=== PATIENT | male | born 1960 | race American Indian/Alaskan Native ===

== ENCOUNTER 2021-07-18 14:29 | Inpatient (IN) | payer OTHER ==
[2021-07-18] MEDS ORDERED: SODIUM CHLORIDE 0.9% 500 ML 500 ML IV ONE (14:31)
[2021-07-18] MEDS ORDERED: HEPARIN 1,000 UNIT/1 ML VIAL IV ONE (14:31)
[2021-07-18] MEDS ORDERED: ONDANSETRON 4 MG/2 ML INJ IV ONE (14:31)
[2021-07-18] MEDS ORDERED: CLOPIDOGREL 300 MG TAB PO ONE (14:31)
[2021-07-18] MEDS ORDERED: MORPHINE 4 MG/1 ML INJ IV ONE (14:32)
[2021-07-18] MEDS ORDERED: HEPARIN 10,000 UNITS/10 ML VIAL ONE (14:34)
[2021-07-18] MEDS ORDERED: HEPARIN/NS 5000 UNIT/500ML 1,000 ML IR ONE (14:34)
[2021-07-18] MEDS ORDERED: VERAPAMIL 5 MG/2 ML INJ ONE (14:34)
[2021-07-18] MEDS ORDERED: LIDOCAINE (2%) 20 MG/1 ML VIAL 50 ML MDV INFILTRATI ONE (14:34)
[2021-07-18] MEDS ORDERED: NITROGLYCERIN SYRINGE 3 ML ONE (14:34)
[2021-07-18] MEDS ORDERED: SODIUM CHLORIDE 0.9% 1000 ML 1,000 ML ONE (14:35)
--- NOTE | 2021-07-18 14:39 | Emergency Department Report ---
ED Chest Pain HPI - General Chief Complaint: Chest Pain Stated Complaint: STEM Time Seen by Provider: 07/18/21 14:29 Source: patient, police, EMS (Verbal report received from emergency medical services. EMS documentation not available at time of chart dictation ), RN notes reviewed Mode of arrival: Stretcher Limitations: No Limitations - History of Present Illness Initial Comments: The patient is a 60-year-old gentleman who is currently incarcerated, with a history of diabetes, presenting to the ER with central chest pain. Prehospital EKG indicates inferior wall STEMI. There may also be a lateral component. Prehospital EKG is used to initiate code STEMI. Patient's pain is relieved with morphine and nitroglycerin, both administered by EMS in the field. Specific EMS administration of nitroglycerin was not discussed with myself prehospital. Patient also received aspirin. Patient denies travel, surgery, immobilization, DVT/PE risk factors. His pain is much improved after the aforementioned interventions. Hospital physician, Dr. Babin, to admit patient to the medical service. Interventional cardiology, Arjun Arias, to emergently take patient to the cardiac catheterization lab. Critical care physician, Dr. Walker to coordinate ICU admission MD Complaint: chest pain -: Sudden Onset: during rest Pain Location: substernal Consistency: constant Improves With: nitroglycerin, medication-other Worsens With: nothing Aspirin use within the Past 7 Days: (1) Yes - Related Data Home Medications Medication Instructions Recorded Confirmed Last Taken metFORMIN [Glucophage] 500 mg PO QDAY 07/18/21 07/18/21 Unknown Allergies Allergy/AdvReac Type Severity Reaction Status Date / Time insulin isophane (NPH) Allergy Angioedema Verified 07/18/21 14:55 Heart Score - HEART Score History: Moderately suspicious EKG: Significant ST-depression Age: 45-65 Risk factors: > 3 risk factors or hx of atherosclerotic disease Troponin: < normal limit HEART Score: 6 - EKG Read Time Time EKG Completed: 14:20 EKG Read Time: 14:20 - Critical Actions Critical Actions: 4-6 pts:12-16.6% risk of adverse cardiac event. Should be admitted ED Review of Systems ROS: Stated complaint: STEM Other details as noted in HPI Constitutional: denies: fever Eyes: denies: eye discharge ENT: denies: hearing loss Respiratory: denies: cough Cardiovascular: chest pain Gastrointestinal: denies: abdominal pain, hematemesis, melena, hematochezia Musculoskeletal: denies: back pain Neurological: denies: weakness ED Past Medical Hx - Medications Home Medications: Home Medications Medication Instructions Recorded Confirmed Last Taken Type metFORMIN [Glucophage] 500 mg PO QDAY 07/18/21 07/18/21 Unknown History ED Physical Exam - General Limitations: No Limitations General appearance: alert, in no apparent distress - Head Head exam: Present: atraumatic, normocephalic - Eye Eye exam: Present: normal appearance, EOMI. Absent: nystagmus - ENT ENT exam: Present: normal exam, normal orophraynx, mucous membranes moist, normal external ear exam - Neck Neck exam: Present: normal inspection, full ROM. Absent: tenderness, meningismus - Respiratory Respiratory exam: Present: normal lung sounds bilaterally. Absent: respiratory distress, wheezes, rales, rhonchi, stridor, decreased breath sounds - Cardiovascular Cardiovascular Exam: Present: regular rate, normal rhythm, normal heart sounds. Absent: bradycardia, tachycardia, irregular rhythm, systolic murmur, diastolic murmur, rubs, gallop - GI/Abdominal GI/Abdominal exam: Present: soft. Absent: distended, tenderness, guarding, rebound, rigid, pulsatile mass - Rectal Rectal exam: Present: deferred - Extremities Exam Extremities exam: Present: normal inspection, full ROM, other (2+ pulses noted in the bilateral upper and lower extremities. There is no palpable cord. negative Homans sign. Muscular compartments are soft. The pelvis is stable.). Absent: pedal edema, calf tenderness - Back Exam Back exam: Present: normal inspection. Absent: tenderness, CVA tenderness (R), CVA tenderness (L), paraspinal tenderness, vertebral tenderness - Neurological Exam Neurological exam: Present: alert, other (No facial droop. Tongue midline. Extraocular movements intact bilaterally. Facial sensation intact to light touch in V1, V2, V3 distribution bilaterally. 5 and a 5 strength in 4 extremities. Sensation intact to light touch in 4 extremities.). Absent: motor sensory deficit - Psychiatric Psychiatric exam: Present: anxious - Skin Skin exam: Present: warm, dry, intact, normal color. Absent: rash ED Course Vital Signs 07/18/21 07/18/21 07/18/21 14:34 15:30 15:45 Temperature 98.4 F Pulse Rate 115 H 103 H 102 H Respiratory 15 17 Rate Blood Pressure 103/72 104/72 O2 Sat by Pulse 96 95 Oximetry 07/18/21 07/18/21 07/18/21 16:00 16:15 16:30 Temperature Pulse Rate 103 H 103 H 104 H Respiratory 19 20 21 Rate Blood Pressure 110/74 103/74 110/75 O2 Sat by Pulse 97 95 95 Oximetry 07/18/21 07/18/21 07/18/21 17:00 17:45 18:00 Temperature Pulse Rate 105 H 105 H 102 H Respiratory 20 23 21 Rate Blood Pressure 102/69 110/68 113/74 O2 Sat by Pulse 96 98 97 Oximetry 07/18/21 07/18/21 07/18/21 19:00 20:00 21:24 Temperature 99.4 F Pulse Rate 103 H 105 H 106 H Respiratory 21 21 16 Rate Blood Pressure 120/78 103/78 116/77 O2 Sat by Pulse 96 96 93 Oximetry 07/19/21 07/19/21 07/19/21 02:36 03:42 08:20 Temperature 100.5 F H 98.6 F Pulse Rate 111 H 111 H Respiratory 16 18 Rate Blood Pressure 120/76 117/75 O2 Sat by Pulse 95 91 92 Oximetry - Reevaluation(s) Reevaluation #1: 07/18/21 14:38 Differential diagnosis, include but not limited to: Pericarditis, myocarditis, Prinzmetal's angina, acute coronary syndrome Assessment and plan: 60-year-old gentleman with acute chest pain and EKG meeting criteria for STEMI. Cardiac catheterization lab is activated. Hospital physician to admit, critical care and cardiology to follow in consultation. Cardiology nurse practitioner, Jeremiah Gordon, working with security lead, Dr Arjun Arias, advises administration of heparin, and Plavix. Due to the time sensitive nature of STEMI alert, the ER will not be able to follow-up on the patient's laboratory studies or x-rays. Defer to inpatient team to follow-up on initial ordered for diagnostics. Dr Alana Babin to admit consulted critical care Dr Walker for post cath admission to the ICU, who will follow in consultation 07/19/21 12:29 SALVATORE score - Salvatore Score Age > 65: (0) No Aspirin use within the Past 7 Days: (1) Yes 3 or more CAD Risk Factors: (1) Yes 2 or more Angina events in past 24 hrs: (0) No Known CAD with more than 50% Stenosis: (0) No Elevated Cardiac Markers: (0) No ST Deviation Greater than 0.5mm: (1) Yes SALVATORE Score: 3 ED Medical Decision Making - Lab Data Result diagrams: 07/18/21 14:33 07/18/21 14:33 Vital Signs 07/18/21 07/18/21 07/18/21 14:34 15:30 15:45 Temperature 98.4 F Pulse Rate 115 H 103 H 102 H Respiratory 15 17 Rate Blood Pressure 103/72 104/72 O2 Sat by Pulse 96 95 Oximetry 07/18/21 07/18/21 07/18/21 16:00 16:15 16:30 Temperature Pulse Rate 103 H 103 H 104 H Respiratory 19 20 21 Rate Blood Pressure 110/74 103/74 110/75 O2 Sat by Pulse 97 95 95 Oximetry 07/18/21 07/18/21 07/18/21 17:00 17:45 18:00 Temperature Pulse Rate 105 H 105 H 102 H Respiratory 20 23 21 Rate Blood Pressure 102/69 110/68 113/74 O2 Sat by Pulse 96 98 97 Oximetry 07/18/21 07/18/21 07/18/21 19:00 20:00 21:24 Temperature 99.4 F Pulse Rate 103 H 105 H 106 H Respiratory 21 21 16 Rate Blood Pressure 120/78 103/78 116/77 O2 Sat by Pulse 96 96 93 Oximetry 07/19/21 07/19/21 07/19/21 02:36 03:42 08:20 Temperature 100.5 F H 98.6 F Pulse Rate 111 H 111 H Respiratory 16 18 Rate Blood Pressure 120/76 117/75 O2 Sat by Pulse 95 91 92 Oximetry Lab Results 07/18/21 07/18/21 07/18/21 Range/Units 14:33 14:33 14:33 WBC 17.4 H (4.5-11.0) K/mm3 RBC 3.48 L (3.65-5.03) M/mm3 Hgb 9.6 L (11.8-15.2) gm/dl Hct 29.4 L (35.5-45.6) % MCV 85 (84-94) fl MCH 28 (28-32) pg MCHC 33 (32-34) % RDW 13.1 L (13.2-15.2) % Plt Count 512 H (140-440) K/mm3 Lymph % (Auto) 7.3 L (13.4-35.0) % Leake % (Auto) 9.2 H (0.0-7.3) % Eos % (Auto) 0.0 (0.0-4.3) % Baso % (Auto) 0.3 (0.0-1.8) % Lymph # (Auto) 1.3 (1.2-5.4) K/mm3 Leake # (Auto) 1.6 H (0.0-0.8) K/mm3 Eos # (Auto) 0.0 (0.0-0.4) K/mm3 Baso # (Auto) 0.1 (0.0-0.1) K/mm3 Seg Neutrophils % 83.2 H (40.0-70.0) % Seg Neutrophils # 14.5 H (1.8-7.7) K/mm3 PT 18.9 H (12.2-14.9) Sec. INR 1.41 H (0.87-1.13) APTT 31.6 (24.2-36.6) Sec. Sodium 125 L (137-145) mmol/L Potassium 4.0 (3.6-5.0) mmol/L Chloride 82.6 L (98-107) mmol/L Carbon Dioxide 26 (22-30) mmol/L Anion Gap 20 mmol/L BUN 16 (9-20) mg/dL Creatinine 0.9 (0.8-1.3) mg/dL Estimated GFR > 60 ml/min BUN/Creatinine Ratio 18 % Glucose 296 H (75-100) mg/dL Calcium 9.3 (8.4-10.2) mg/dL Total Creatine Kinase 59 (55-170) units/L CK-MB (CK-2) 1.0 (0.0-4.0) ng/mL CK-MB (CK-2) Rel Index 1.6 (0-4) Troponin T < 0.010 (0.00-0.029) ng/mL - EKG Data -: EKG Interpreted by Me - EKG Data 07/18/21 14:38 The prehospital EKG is interpreted by myself at 02: 2 0 p.m. Sinus rhythm, tachycardia, rate 112 bpm. Borderline leftward axis deviation, ST elevation in 2, 3, aVF, V5 and V6, abnormal EKG, consistent with a STEMI. - Radiology Data Radiology results: report reviewed, image reviewed [facility] [address] [place] [address] XRay Report Signed Patient: ANURAG HILTON MR#: [id number] : 1960 Acct:[id number] Age/Sex: 60 / M ADM Date: 07/18/21 Loc: 4A HEER2M-[address]: KEELY BABIN MD Ordering Physician: JEREMIAH BRANDON MD Date of Service: 07/18/21 Procedure(s): XR chest 1V ap Accession Number(s): [id number] cc: JEREMIAH BRANDON MD Fluoro Time In Minutes: Chest single view INDICATION: Dyspnea IMPRESSION: Cardiomegaly with trace bibasilar opacity probably representing atelectasis. No pneumothorax. Signer Name: Benny Dempsey MD Signed: 07/18/2021 6:55 PM Workstation Name: [id number] Transcribed By: BC Dictated By: Benny Dempsey MD Electronically Authenticated By: Benny Dempsey MD Signed Date/Time: 07/18/211854 DD/ 54 Critical Care Time: Yes Critical care time in (mins) excluding proc time.: 35 Critical care attestation.: If time is entered above; I have spent that time in minutes in the direct care of this critically ill patient, excluding procedure time. ED Disposition Clinical Impression: Acute chest pain, Abnormal EKG Disposition: ADMITTED INPATIENT Is pt being admited?: Yes Does the pt Need Aspirin: No Condition: Critical
[2021-07-18] MEDS ORDERED: fentaNYL 100 MCG/2 ML INJ ONE (14:43)
[2021-07-18] MEDS ORDERED: MIDAZOLAM 2 MG/2 ML INJ ONE (14:43)
--- NOTE | 2021-07-18 14:49 | History and Physical Report ---
History of Present Illness Chief complaint: My chest hurts History of present illness: 60 YO Male with DM, Cocaine Dependence presents ED for evaluation. Patient reports "my chest hurts". Patient states that he experienced chest pain over the past 2 weeks with an acute worsening of symptoms that occurred today. Dipti villafana states that the pain is 6/10, constant, substernal, worsened with exertion, relieved with nitro. Patient is currently incarcerated. EMS was notified and upon arrival the patient was found to be in distress and subsequently transported to [facility] for further care and evaluation of the aforementioned symptoms. The patient was found to have evidence of ST elevation on his EKG conducted in the field. Patient transported to [facility] for further care and evaluation of the aforementioned symptoms. The patient was seen and evaluated in the emergency department. All lab and imaging studies reviewed. Patient found to have ST elevation PR as well as clinical symptoms consistent with diastolic CHF. Cardiology team notified. Patient taken urgently to cardiac Operations Manager/Coordinator for cardiac catheterization. Patient denies fever, chills, productive cough, skin rash, recent contact, known exposure to COVID-19. No prior admission for review. No medication listed at time of admission for reconciliation. Advanced care planning conducted in ED. Past History Past Medical History: diabetes, other (See HPI) Past Surgical History: No surgical history, Other (Reviewed) Social history: . denies: smoking, alcohol abuse, prescription drug abuse Family history: diabetes, hypertension Medications and Allergies Allergies Allergy/AdvReac Type Severity Reaction Status Date / Time insulin isophane (NPH) Allergy Angioedema Verified 07/18/21 14:55 Active Meds: Active Medications Clopidogrel Bisulfate (Clopidogrel 300 Mg Tab) 300 mg PO ONCE ONE Stop: 07/18/21 14:32 Heparin Sodium (Porcine) (Heparin 1,000 Unit/1 Ml Vial) 4,000 unit IV BOLUS ONE Stop: 07/18/21 14:32 Sodium Chloride (Nacl 0.9% 500 Ml) 500 mls @ 999 mls/hr IV BOLUS ONE Stop: 07/18/21 15:01 Heparin Sodium/Sodium Chloride (Heparin/ 0.45% Nacl-25,000 Unit/500 Ml) 25,000 unit in 500 mls @ 0 mls/hr IV TITRATE AVERY; Protocol Morphine Sulfate (Morphine 4 Mg/1 Ml Inj) 4 mg IV ONCE ONE Stop: 07/18/21 14:33 Ondansetron HCl (Ondansetron 4 Mg/2 Ml Inj) 4 mg IV ONCE ONE Stop: 07/18/21 14:32 Review of Systems Constitutional: no weight loss, no weight gain, no sweats Ears, nose, mouth and throat: no ear pain, no ear discharge, no decreased hearing, no nose pain Cardiovascular: chest pain, shortness of breath, no orthopnea, no palpitations Respiratory: no cough, no cough with sputum, no shortness of breath Gastrointestinal: no abdominal pain, no vomiting, no diarrhea, no hematemesis Genitourinary Male: no dysuria, no hematuria, no flank pain, no discharge, no urinary frequency, no urinary hesitancy Rectal: no pain, no incontinence Musculoskeletal: no neck pain, no arm numbness/tingling, no shooting leg pain, no leg numbness/tingling Integumentary: no rash, no pruritis, no redness, no sores, no wounds, no jaundice, no boils Neurological: no head injury, no paralysis, no parathesias, no numbness, no seizures, no syncope Psychiatric: no anxiety, no change in sleep habits, no insomnia, no hypersomnia, no change in appetite Endocrine: no cold intolerance, no polyphagia, no polydipsia, no flushing Hematologic/Lymphatic: no easy bruising, no easy bleeding Allergic/Immunologic: no urticaria, no allergic rhinitis, no wheezing Exam - Constitutional General appearance: Present: mild distress - EENT Eyes: Present: PERRL ENT: hearing intact, clear oral mucosa - Neck Neck: Present: supple, normal ROM - Respiratory Respiratory effort: normal Respiratory: bilateral: CTA - Cardiovascular Heart Sounds: Present: S1 & S2. Absent: rub, click - Extremities Extremities: pulses symmetrical, No edema Peripheral Pulses: within normal limits - Abdominal General gastrointestinal: Present: soft, non-tender, non-distended, normal bowel sounds Male genitourinary: Present: normal - Integumentary Integumentary: Present: clear, warm, dry - Musculoskeletal Musculoskeletal: gait normal, strength equal bilaterally - Psychiatric Psychiatric: appropriate mood/affect, intact judgment & insight - Neurologic Neurologic: CNII-XII intact, moves all extremities HEART Score - HEART Score EKG: Significant ST-depression Age: 45-65 Risk factors: > 3 risk factors or hx of atherosclerotic disease Results - Labs CBC & Chem 7: 04/29/22 14:33 07/18/21 14:33 Assessment and Plan - Patient Problems (1) STEMI (ST elevation myocardial infarction) Current Visit: No Status: Acute Plan to address problem: Cardiology team consulted. Patient taken urgently to Operations Manager/Coordinator. Patient initiated on therapeutic anticoagulation, blood pressure control, supportive care. (2) Diastolic CHF Current Visit: Yes Status: Acute Qualifiers: Heart failure chronicity: acute Qualified Code(s): I50.31 - Acute diastolic (congestive) heart failure Plan to address problem: Strict I's/O, monitor urine output every shift, daily weight, afterload reduction, blood pressure control. Cardiology team consulted. Further care and evaluation as per cardiology team. (3) DVT prophylaxis Current Visit: Yes Status: Acute Plan to address problem: SCDs bilateral lower extremities while in bed, continue therapeutic anticoagulation. (4) Advance care planning Current Visit: Yes Status: Acute Plan to address problem: Disease education conducted, care plan discussed, diagnoses discussed, prognosis discussed, patient is full code. Patient knowledges understanding and agreement with care plan, +30 minutes. (5) Substance abuse Current Visit: Yes Status: Acute Plan to address problem: Patient counseled, behavior change counseling, supportive care, outpatient drug dependence follow-up. (6) Cocaine dependence Current Visit: Yes Status: Acute Qualifiers: Complication of substance-induced condition: uncomplicated Plan to address problem: Supportive care, continue medical management. (7) Preventative health care Current Visit: Yes Status: Acute Plan to address problem: Patient counseled regarding substance abuse and cocaine dependence. Patient regarding counseled regarding outpatient drug dependence follow-up. +15 minutes.
[2021-07-18] MEDS ORDERED: ACETAMINOPHEN 325 MG TAB PO PRN (14:50)
[2021-07-18] MEDS ORDERED: MORPHINE 2 MG/1 ML INJ IV PRN (14:50)
[2021-07-18] MEDS ORDERED: HYDROmorphone 1 MG/1 ML INJ IV PRN (14:50)
[2021-07-18] MEDS ORDERED: ALBUTEROL 2.5 MG/3 ML NEBU IH PRN (14:50)
[2021-07-18] MEDS ORDERED: HEPARIN/ 0.45% NACL DRIP 25,000 UNIT/500 ML BAG IV SCH (15:00)
[2021-07-18 15:13] LABS: Basophils # (Auto) 0.1 K/mm3 (0.0-0.1); Basophils % (Auto) 0.3 % (0.0-1.8); Hematocrit 29.4 % (35.5-45.6); Hemoglobin 9.6 gm/dl (11.8-15.2); Lymphocytes # (Auto) 1.3 K/mm3 (1.2-5.4); Lymphocytes % (Auto) 7.3 % (13.4-35.0); Mean Corpuscular HGB Conc 33 % (32-34); Mean Corpuscular Volume 85 fl (84-94); Monocytes # (Auto) 1.6 K/mm3 (0.0-0.8); Monocytes % (Auto) 9.2 % (0.0-7.3); Platelet Count 512 K/mm3 (140-440); Red Blood Count 3.48 M/mm3 (3.65-5.03); Red Cell Distribution Width 13.1 % (13.2-15.2)
[2021-07-18] MEDS ORDERED: HYDROcodone/ACETAMINOPHEN 5-325 MG TAB PO PRN (15:28)
[2021-07-18] MEDS ORDERED: traMADol 50 MG TAB PO PRN (15:28)
[2021-07-18 15:29] LABS: BUN/Creatinine Ratio 18; Blood Urea Nitrogen 16 mg/dL (9-20); Calcium 9.3 mg/dL (8.4-10.2); Hemolysis Index 48; INR 1.41 (0.87-1.13); Partial Thromboplastin Time 31.6 Sec. (24.2-36.6)
--- NOTE | 2021-07-18 16:32 | Consultation ---
History of Present Illness Consult date: 07/18/21 Requesting physician: ALBARO BRANDON Consult reason: other (STEMI) History of present illness: Patient is 60-year-old male with past medical history of diabetes and reported crack cocaine use who presents to the ED with a complaint of chest pain which he states has been going on for 2 weeks. Patient describes the pain as crushing and that radiated to his back. Patient denies shortness of breath, nausea vomiting, diaphoresis. Of note patient is currently incarcerated and was transported by EMS due to EKG findings consistent with STEMI. Patient was taken to Trimming Assembler for further intervention at time of interview patient is currently chest pain-free Past History Past Medical History: diabetes Past Surgical History: Other (Hand surgery) Social history: other (Reports crack cocaine) Family history: no significant family history Medications and Allergies Allergies Allergy/AdvReac Type Severity Reaction Status Date / Time insulin isophane (NPH) Allergy Angioedema Verified 07/18/21 14:55 Active Meds: Active Medications Acetaminophen (Acetaminophen 325 Mg Tab) 650 mg PO Q6H PRN PRN Reason: Pain MILD(1-3)/Fever >100.5/ALMEIDA Hydrocodone Bitart/Acetaminophen (Hydrocodone/Acetaminophen 5-325 Mg Tab) 1 each PO Q4H PRN PRN Reason: Pain, Moderate (4-6) Albuterol (Albuterol 2.5 Mg/3 Ml Nebu) 2.5 mg IH Q3HRT PRN PRN Reason: Shortness Of Breath Hydromorphone HCl (Hydromorphone 1 Mg/1 Ml Inj) 0.5 mg IV Q8H PRN PRN Reason: Pain , Severe (7-10) Heparin Sodium/Sodium Chloride (Heparin/ 0.45% Nacl-25,000 Unit/500 Ml) 25,000 unit in 500 mls @ 20 mls/hr IV TITRATE AVERY; Protocol Morphine Sulfate (Morphine 2 Mg/1 Ml Inj) 2 mg IV Q6H PRN PRN Reason: Pain, Moderate (4-6) Sodium Chloride (Sodium Chloride 0.9% 10 Ml Flush Syringe) 10 ml IV BID AVERY Sodium Chloride (Sodium Chloride 0.9% 10 Ml Flush Syringe) 10 ml IV PRN PRN PRN Reason: LINE FLUSH Tramadol HCl (Tramadol 50 Mg Tab) 50 mg PO Q4H PRN PRN Reason: Pain, Mild (1-3) Review of Systems Constitutional: no weight loss, no weight gain Ears, nose, mouth and throat: no ear pain, no ear discharge Cardiovascular: chest pain, no rapid/irregular heart beat, no shortness of breath, no dyspnea on exertion Respiratory: no shortness of breath, no dyspnea on exertion Gastrointestinal: no abdominal pain, no nausea, no vomiting Musculoskeletal: no neck stiffness, no neck pain, no shooting arm pain Integumentary: no rash, no pruritis, no redness Neurological: no head injury, no transient paralysis Psychiatric: no anxiety, no memory loss Endocrine: no cold intolerance, no heat intolerance Hematologic/Lymphatic: no easy bruising, no easy bleeding Physical Examination Vital Signs Temp Pulse Resp BP Pulse Ox 98.4 F 103 H 15 103/72 96 07/18/21 15:30 07/18/21 15:30 07/18/21 15:30 07/18/21 15:30 07/18/21 15:30 General appearance: no acute distress HEENT: Positive: PERRL Cardiac: Positive: Reg Rate and Rhythm Lungs: Positive: Normal Breath Sounds Neuro: Positive: Grossly Intact Abdomen: Positive: Soft, Active Bowel Sounds Skin: Negative: Rash, Suspicious Lesions, Ulceration Extremities: Present: upper extr. pulses. Absent: edema Results 07/18/21 14:33 07/18/21 14:33 Cardiac Enzymes 07/18/21 Range/Units 14:33 CK-MB (CK-2) 1.0 (0.0-4.0) ng/mL Coagulation 07/18/21 Range/Units 14:33 PT 18.9 H (12.2-14.9) Sec. INR 1.41 H (0.87-1.13) APTT 31.6 (24.2-36.6) Sec. CBC 07/18/21 Range/Units 14:33 WBC 17.4 H (4.5-11.0) K/mm3 RBC 3.48 L (3.65-5.03) M/mm3 Hgb 9.6 L (11.8-15.2) gm/dl Hct 29.4 L (35.5-45.6) % Plt Count 512 H (140-440) K/mm3 Lymph # (Auto) 1.3 (1.2-5.4) K/mm3 Roane # (Auto) 1.6 H (0.0-0.8) K/mm3 Eos # (Auto) 0.0 (0.0-0.4) K/mm3 Baso # (Auto) 0.1 (0.0-0.1) K/mm3 Comprehensive Metabolic Panel 07/18/21 Range/Units 14:33 Sodium 125 L (137-145) mmol/L Potassium 4.0 (3.6-5.0) mmol/L Chloride 82.6 L (98-107) mmol/L Carbon Dioxide 26 (22-30) mmol/L BUN 16 (9-20) mg/dL Creatinine 0.9 (0.8-1.3) mg/dL Glucose 296 H (75-100) mg/dL Calcium 9.3 (8.4-10.2) mg/dL - Imaging and Cardiology Echo: pending Cardiac cath: pending EKG interpretations - Telemetry EKG Rhythm: Sinus Rhythm - EKG Sinus rhythms and dysrhythmias: sinus rhythm Myocardial infarction: inferior NV (acute or rec, anterior NV (acute or rec, lateral NV (acute or rece Assessment and Plan Patient is 60-year-old male with past medical history of diabetes and reported crack cocaine use who presents to the ED with a complaint of chest pain which he states has been going on for 2 weeks with EKG findings consistent with Chest pain Drug abuse Diabetes Plan: EKG showed STEMI with anterior, inferior, and lateral acute ischemic changes Patient taken for immediate cardiac intervention. Cardiac cath showed no blockages/lesions. Please see cardiac cath report for full details At this time patient is currently chest pain-free Echo pending Repeat EKG in the a.m. Repeat cardiac enzymes pending UDS pending Recommend holding beta-kody due to patient's report of cocaine/crack use and pending UDS Patient seen in conjunction with Dr. Arias who agrees with this plan of care - Patient Problems (1) Substance abuse Current Visit: Yes Status: Acute (2) STEMI (ST elevation myocardial infarction) Current Visit: No Status: Acute
--- NOTE | 2021-07-18 17:10 | Cardiac Catherization Report ---
DATE OF PROCEDURE: 07/18/2021 CARDIAC CATHETERIZATION INDICATIONS: The patient is a 60-year-old gentleman with multiple risk factors in [facility], having chest pain for 2 weeks, brought to the Emergency Room. EKG shows discrete anterolateral ST elevation. STEMI protocol was initiated. The patient was loaded with aspirin and heparin. Patient is referred for urgent left heart catheterization. He is awake and alert. By the time he arrived to the catheter builder, he has 1/10 chest pain. Risks, benefits and alternatives discussed prior to obtaining informed consent. PROCEDURE IN DETAIL: The patient was brought to catheter builder in an urgent fashion, prepped and draped in sterile fashion. Edenilson's test in right hand is normal. A 2 mL of 2% lidocaine used to anesthetize the right wrist. A standard 6-Finnish hydrophilic sheath used to cannulate the right radial artery via modified Seldinger technique. All exchanges performed to exchange a J-tip guidewire. JR4 catheter was used to cross the aortic valve under fluoroscopic guidance. Left ventriculography performed in 30-degree COLTON projections via hand injections, catheter flushed. Manual pullback performed with continuous pressure monitoring. Catheter used to engage the right coronary. No dampening or ventricularization. Cineangiography performed in multiple projections. Next, an EBU 3.5 guide used to engage the left main without difficulty. Angiography was performed in multiple projections. Next, catheter was removed from the body of wire, sheath removed. Manual pressure used to achieve hemostasis. DATA: The patient remained in sinus tachycardia throughout the procedure, heart rate of 95-105. CORONARY ANATOMY: This is a left dominant system. Left main is without significant disease, bifurcates in left anterior descending and left circumflex. Left circumflex is a moderate-sized vessel, courses the AV groove. No significant disease. LAD is a moderate-sized vessel, courses the anterior intergroove, wraps around the apex. A 25% mid LAD stenosis smooth and no other significant disease identified. Diagonals free of significant disease as well. Right coronary is a moderate-sized vessel, nondominant, JOSE 3 flow, no significant disease. Left ventriculography reveals ejection fraction of 60-65%. Normal LVEDP. Aortic pressure is 120/80, LV pressure is 120, LVEDP of 10 mmHg. I directly supervised the administration of moderate sedation with fentanyl and Versed from 2:40 p.m. to 3:15 p.m. No immediate complications identified. CONCLUSIONS: 1. Minimal nonobstructive coronary artery disease in this left dominant system. 2. Normal left ventricular systolic performance, estimated ejection fraction of 60-65%. 3. No evidence of aortic stenosis. 4. Normal LVEDP. The etiology of his ST elevation and chest pain is unclear. We will check a UDS. Check echocardiogram. It is not a clear pattern for pericarditis. The patient is currently chest pain free. JOSE 3 flow throughout. No significant disease. IV fluids. Follow up on lab work, which is still pending. Hospitalist to admit. The patient is now chest pain free and clinically stable. Check urine drug screen. Results of procedure explained to the patient at length. All questions and concerns were addressed. TID: [id number] RECEIPT: [id number] BRUNO/SO
--- NOTE | 2021-07-18 19:00 | XRay Report ---
Chest single view INDICATION: Dyspnea IMPRESSION: Cardiomegaly with trace bibasilar opacity probably representing atelectasis. No pneumotho rax. Signer Name: Benny Dempsey MD Signed: 07/18/2021 6:55 PM Workstation Name: [email or web address]
[2021-07-18 20:28] LABS: Amphetamine Screen,Urine PRESUMPTIVE NEGATIVE; Benzodiazepines Screen,Urine PRESUMPTIVE POSITIVE; Cannabinoid Screen,Urine PRESUMPTIVE NEGATIVE; Cocaine Screen,Urine PRESUMPTIVE NEGATIVE; Methadone Screen,Urine PRESUMPTIVE NEGATIVE; Opiate Screen,Urine PRESUMPTIVE NEGATIVE
[2021-07-18 21:39] LABS: Creatine Kinase MB 1.1 ng/mL (0.0-4.0)
--- NOTE | 2021-07-19 07:56 | Progress Note ---
Assessment and Plan Assessment and plan: #STEMI (ST elevation myocardial infarction) #Coronary Artery Disease -ST elevations noted on EKG -troponin negative x2 -Cardiac cath 07/18/21: nonobstructive CAD -Echocardiogram pending -continue aspirin, statin & BB -Cardiology following, assistance appreciated #Diastolic CHF Strict I's/O, monitor urine output every shift, daily weight, afterload reduction, blood pressure control. Cardiology team consulted. Further care and evaluation as per cardiology team. #Type 2 diabetes, [id number] -glucose of 500 per nursing -Given 10 units regular insulin -A1c ordered -will continue with moderate sliding scale -will adjust regimen according to future blood glucose values -carbohydrate consistent diet #Leukocytosis #Thrombocytosis -patient with low grade fever overnight 100.5 -etiology unknown, likely reactive -will repeat CBC to monitor #Cocaine dependence -UDS negative -Supportive care, continue medical management #Advance care planning -Disease education conducted, care plan discussed, diagnoses discussed, prognosis discussed, patient is full code. Patient knowledges understanding and agreement with care plan, +30 minutes. History Interval history: No acute events overnight. Patient reports being constipated and has not had a bowel movement in over 16 days. Denies chest pain, shortness of breath, abdominal pain, nausea/vomiting. Hospitalist Physical - Physical exam Narrative exam: GENERAL: Well-developed well-nourished. In no acute distress. HEENT: Normocephalic. Atraumatic. NECK: Supple. CHEST/LUNGS: CTAB on room air HEART/CARDIOVASCULAR: RRR. No murmur, rubs or gallops appreciated. ABDOMEN: +BS. NT/ND. SKIN: No rashes noted. NEURO: No focal motor deficit. Follows all commands. MUSCULOSKELETAL: No joint effusion EXTREMITIES: No cyanosis, clubbing or edema. PSYCH: Cooperative. - Constitutional Vitals: Temp Pulse Resp BP Pulse Ox 100.5 F H 111 H 16 120/76 91 07/19/21 03:42 07/19/21 03:42 07/19/21 03:42 07/19/21 03:42 07/19/21 03:42 General appearance: Present: mild distress HEART Score - HEART Score EKG: Significant ST-depression Age: 45-65 Risk factors: > 3 risk factors or hx of atherosclerotic disease Troponin: Troponin T < 0.010 ng/mL (0.00-0.029) 04/29/22 20:52 Results - Labs CBC & Chem 7: 07/18/21 14:33 07/18/21 14:33 Labs: Laboratory Last Values WBC 17.4 K/mm3 (4.5-11.0) H 07/18/21 14:33 RBC 3.48 M/mm3 (3.65-5.03) L 07/18/21 14:33 Hgb 9.6 gm/dl (11.8-15.2) L 07/18/21 14:33 Hct 29.4 % (35.5-45.6) L 07/18/21 14:33 MCV 85 fl (84-94) 07/18/21 14:33 MCH 28 pg (28-32) 07/18/21 14:33 MCHC 33 % (32-34) 07/18/21 14:33 RDW 13.1 % (13.2-15.2) L 07/18/21 14:33 Plt Count 512 K/mm3 (140-440) H 07/18/21 14:33 Lymph % (Auto) 7.3 % (13.4-35.0) L 07/18/21 14:33 [place] % (Auto) 9.2 % (0.0-7.3) H 07/18/21 14:33 Eos % (Auto) 0.0 % (0.0-4.3) 07/18/21 14:33 Baso % (Auto) 0.3 % (0.0-1.8) 07/18/21 14:33 Lymph # (Auto) 1.3 K/mm3 (1.2-5.4) 07/18/21 14:33 [place] # (Auto) 1.6 K/mm3 (0.0-0.8) H 07/18/21 14:33 Eos # (Auto) 0.0 K/mm3 (0.0-0.4) 07/18/21 14:33 Baso # (Auto) 0.1 K/mm3 (0.0-0.1) 07/18/21 14:33 Seg Neutrophils % 83.2 % (40.0-70.0) H 07/18/21 14:33 Seg Neutrophils # 14.5 K/mm3 (1.8-7.7) H 07/18/21 14:33 PT 18.9 Sec. (12.2-14.9) H 07/18/21 14:33 INR 1.41 (0.87-1.13) H 07/18/21 14:33 APTT 31.6 Sec. (24.2-36.6) 07/18/21 14:33 Sodium 125 mmol/L (137-145) L 07/18/21 14:33 Potassium 4.0 mmol/L (3.6-5.0) 07/18/21 14:33 Chloride 82.6 mmol/L (98-107) L 07/18/21 14:33 Carbon Dioxide 26 mmol/L (22-30) 07/18/21 14:33 Anion Gap 20 mmol/L 07/18/21 14:33 BUN 16 mg/dL (9-20) 07/18/21 14:33 Creatinine 0.9 mg/dL (0.8-1.3) 07/18/21 14:33 Estimated GFR > 60 ml/min 07/18/21 14:33 BUN/Creatinine Ratio 18 % 07/18/21 14:33 Glucose 296 mg/dL (75-100) H 07/18/21 14:33 Calcium 9.3 mg/dL (8.4-10.2) 07/18/21 14:33 Total Creatine Kinase 56 units/L (55-170) 07/18/21 20:52 CK-MB (CK-2) 1.1 ng/mL (0.0-4.0) 07/18/21 20:52 CK-MB (CK-2) Rel Index 1.9 (0-4) 07/18/21 20:52 Troponin T < 0.010 ng/mL (0.00-0.029) 07/18/21 20:52 Urine Opiates Screen Presumptive negative 07/18/21 20:05 Urine Methadone Screen Presumptive negative 07/18/21 20:05 Ur Barbiturates Screen Presumptive negative 07/18/21 20:05 Ur Phencyclidine Scrn Presumptive negative 07/18/21 20:05 Ur Amphetamines Screen Presumptive negative 07/18/21 20:05 U Benzodiazepines Scrn Presumptive positive 07/18/21 20:05 Urine Cocaine Screen Presumptive negative 07/18/21 20:05 U Marijuana (THC) Screen Presumptive negative 07/18/21 20:05 Drugs of Abuse Note Disclamer 07/18/21 20:05 Blood Type O POSITIVE 07/18/21 20:50 Antibody Screen Negative 07/18/21 20:50 Siddiqui/IV: Voiding Method Urinal Active Medications - Current Medications Current Medications: Generic Name Dose Route Start Last Admin Trade Name Freq PRN Reason Stop Dose Admin Acetaminophen 650 mg 07/18/21 14:50 Acetaminophen 325 Mg Tab PO Q6H PRN Pain MILD(1-3)/Fever >100.5/ALMEIDA Hydrocodone Bitart/Acetaminophen 1 each 07/18/21 15:28 Hydrocodone/Acetaminophen 5-325 Mg Tab PO Q4H PRN Pain, Moderate (4-6) Albuterol 2.5 mg 07/18/21 14:50 Albuterol 2.5 Mg/3 Ml Nebu IH Q3HRT PRN Shortness Of Breath Hydromorphone HCl 0.5 mg 07/18/21 14:50 Hydromorphone 1 Mg/1 Ml Inj IV Q8H PRN Pain , Severe (7-10) Heparin Sodium/Sodium Chloride 25,000 unit in 500 mls @ 20 mls/hr 07/18/21 15:00 Heparin/ 0.45% Nacl-25,000 Unit/500 Ml IV TITRATE AVERY Protocol 1,000 UNITS/HR Morphine Sulfate 2 mg 07/18/21 14:50 Morphine 2 Mg/1 Ml Inj IV Q6H PRN Pain, Moderate (4-6) Sodium Chloride 10 ml 07/18/21 22:00 07/18/21 22:47 Sodium Chloride 0.9% 10 Ml Flush Syringe IV 10 ml BID AVERY Administration Sodium Chloride 10 ml 07/18/21 14:50 Sodium Chloride 0.9% 10 Ml Flush Syringe IV PRN PRN LINE FLUSH Tramadol HCl 50 mg 07/18/21 15:28 Tramadol 50 Mg Tab PO Q4H PRN Pain, Mild (1-3)
[2021-07-19] MEDS ORDERED: INSULIN REGULAR, HUMAN 100 UNITS/1 ML SUB-Q SCH (09:00)
[2021-07-19] MEDS ORDERED: DEXTROSE 50% IN WATER (25GM) 50 ML SYRINGE IV PRN (09:00)
--- NOTE | 2021-07-19 09:57 | Progress Note ---
Assessment and Plan Patient is clinically stable from a cardiac perspective. Cardiac catheterization yesterday revealed nonobstructive disease. Echocardiogram is pending. 2 troponins are negative. He is asymptomatic. Aggressive primary and secondary prevention measures also discussed. Low-grade fever overnight. Continue aspirin, low-dose beta-kody, and statin therapy. - Patient Problems (1) Cocaine dependence Current Visit: Yes Status: Acute Qualifiers: Complication of substance-induced condition: uncomplicated (2) Diastolic CHF Current Visit: Yes Status: Acute Qualifiers: Heart failure chronicity: acute Qualified Code(s): I50.31 - Acute diastolic (congestive) heart failure (3) Substance abuse Current Visit: Yes Status: Acute Subjective Interval history: Patient is doing well. Seen at bedside. Guard also at bedside. No symptoms whatsoever. Objective Vital Signs Temp Pulse Resp BP Pulse Ox 07/19/21 08:20 98.6 F 111 H 18 117/75 92 07/19/21 03:42 100.5 F H 111 H 16 120/76 91 07/19/21 02:36 95 07/18/21 21:24 99.4 F 106 H 16 116/77 93 07/18/21 20:00 105 H 21 103/78 96 07/18/21 19:00 103 H 21 120/78 96 07/18/21 18:00 102 H 21 113/74 97 07/18/21 17:45 105 H 23 110/68 98 07/18/21 17:00 105 H 20 102/69 96 07/18/21 16:30 104 H 21 110/75 95 07/18/21 16:15 103 H 20 103/74 95 07/18/21 16:00 103 H 19 110/74 97 07/18/21 15:45 102 H 17 104/72 95 07/18/21 15:30 98.4 F 103 H 15 103/72 96 07/18/21 14:34 115 H - Physical Examination HEENT: Positive: PERRL Neuro: Positive: Grossly Intact Abdomen: Positive: Soft, Active Bowel Sounds Skin: Negative: Rash, Suspicious Lesions, Ulceration Extremities: Present: upper extr. pulses. Absent: edema - Labs and Meds Cardiac Enzymes 07/18/21 07/18/21 Range/Units 14:33 20:52 CK-MB (CK-2) 1.0 1.1 (0.0-4.0) ng/mL Coagulation 07/18/21 Range/Units 14:33 PT 18.9 H (12.2-14.9) Sec. INR 1.41 H (0.87-1.13) APTT 31.6 (24.2-36.6) Sec. CBC 07/18/21 Range/Units 14:33 WBC 17.4 H (4.5-11.0) K/mm3 RBC 3.48 L (3.65-5.03) M/mm3 Hgb 9.6 L (11.8-15.2) gm/dl Hct 29.4 L (35.5-45.6) % Plt Count 512 H (140-440) K/mm3 Lymph # (Auto) 1.3 (1.2-5.4) K/mm3 [place] # (Auto) 1.6 H (0.0-0.8) K/mm3 Eos # (Auto) 0.0 (0.0-0.4) K/mm3 Baso # (Auto) 0.1 (0.0-0.1) K/mm3 Comprehensive Metabolic Panel 07/18/21 Range/Units 14:33 Sodium 125 L (137-145) mmol/L Potassium 4.0 (3.6-5.0) mmol/L Chloride 82.6 L (98-107) mmol/L Carbon Dioxide 26 (22-30) mmol/L BUN 16 (9-20) mg/dL Creatinine 0.9 (0.8-1.3) mg/dL Glucose 296 H (75-100) mg/dL Calcium 9.3 (8.4-10.2) mg/dL - Imaging and Cardiology Echo: pending Cardiac cath: pending - EKG Sinus rhythms and dysrhythmias: sinus rhythm Myocardial infarction: inferior NV (acute or rec, anterior NV (acute or rec, lateral NV (acute or rece
[2021-07-19] MEDS: ASPIRIN 81 MG TAB CHEW PO SCH (10:19)
[2021-07-19] MEDS: METOPROLOL TARTRATE 25 MG TAB PO SCH ×2 (10:19→22:57)
[2021-07-19] MEDS: POLYETHYLENE GLYCOL 3350 17 GM POWDER PO SCH (12:54)
[2021-07-19] MEDS: INSULIN LISPRO 100 UNIT/ML SUB-Q SCH ×3 (12:54→22:42)
[2021-07-19] MEDS: DOCUSATE SODIUM 100 MG CAP PO SCH (12:55)
--- NOTE | 2021-07-19 15:54 | Consultation ---
History of Present Illness Consult date: 07/19/21 Reason for consult: dyspnea, chest pain History of present illness: 60 YO Male with DM, Cocaine Dependence presents ED for evaluation. Patient r eports "my chest hurts". Patient states that he experienced chest pain over the past 2 weeks with an acute worsening of symptoms . Patient states that the pain is 6/10, constant, substernal, worsened with exertion, relieved with nitro. Patient is currently incarcerated. EMS was notified and upon arrival the patient was found to be in distress and subsequently transported to [facility] for further care and evaluation of the aforementioned symptoms. The patient was found to have evidence of ST elevation on his EKG conducted in the field. Patient transported to [facility] for further care and evaluation of the aforementioned symptoms. Patient found to have ST elevation [place] as well as clinical symptoms consistent with diastolic CHF. Cardiology team notified. Patient taken urgently to cardiac Data Processing Equipment Repairer for cardiac catheterization. Patient denies fever, chills, productive cough, skin rash, recent contact, known exposure to COVID-19. Patient has history of diabetes. Patient has history of smoking for 20 years x 1 pack. Stopped smoking Cigaretts 11 years ago. History of alcohol and drug abuse. 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 Says allergic to insuline Isophane. Patient awake, sitting up by the side of the bed. Patient us on room air. O2 O2 saturation 92%. No complaint of chest pain, shortness of breath or cough. Patient afebrile. Has leukocytosis. Blood pressure 111/72, Pulse 106, respirations 18. Chest xray done 07/18/21 reported Cardiomegaly with trace bibasilar opacity probably representing atelectasis. No pneumothorax. Patient is on albuterol inhaler. Past History Past Medical History: diabetes, other (See HPI) Past Surgical History: No surgical history, Other (Reviewed) Social history: . denies: smoking, alcohol abuse, prescription drug abuse Family history: diabetes, hypertension Medications and Allergies Allergies Allergy/AdvReac Type Severity Reaction Status Date / Time insulin isophane (NPH) Allergy Angioedema Verified 07/18/21 14:55 Home Medications Medication Instructions Recorded Confirmed Last Taken Type metFORMIN [Glucophage] 500 mg PO QDAY 07/18/21 07/18/21 Unknown History Active Meds: Active Medications Acetaminophen (Acetaminophen 325 Mg Tab) 650 mg PO Q6H PRN PRN Reason: Fever >100.5/ALMEIDA Hydrocodone Bitart/Acetaminophen (Hydrocodone/Acetaminophen 5-325 Mg Tab) 1 each PO Q4H PRN PRN Reason: Pain, Moderate (4-6) Albuterol (Albuterol 2.5 Mg/3 Ml Nebu) 2.5 mg IH Q3HRT PRN PRN Reason: Shortness Of Breath Aspirin (Aspirin 81 Mg Tab Chew) 81 mg PO QDAY [facility] Last Admin: 07/19/21 10:19 Dose: 81 mg Atorvastatin Calcium (Atorvastatin 20 Mg Tab) 20 mg PO QHS [facility] Dextrose (Dextrose 50% In Water (25gm) 50 Ml Syringe) 50 ml IV Q30MIN PRN; Protocol PRN Reason: Hypoglycemia Docusate Sodium (Docusate Sodium 100 Mg Cap) 100 mg PO QDAY [facility] Last Admin: 07/19/21 12:55 Dose: 100 mg Insulin Human Lispro (Insulin Lispro 100 Unit/Ml) 0 unit SUB-Q ACHS [facility]; Protocol Last Admin: 07/19/21 12:54 Dose: 8 unit Metoprolol Tartrate (Metoprolol Tartrate 25 Mg Tab) 12.5 mg PO BID [facility] Last Admin: 07/19/21 10:19 Dose: 12.5 mg Polyethylene Glycol (Polyethylene Glycol 3350 17 Gm Powder) 17 gm PO QDAY [facility] Last Admin: 07/19/21 12:54 Dose: 17 gm Sodium Chloride (Sodium Chloride 0.9% 10 Ml Flush Syringe) 10 ml IV BID [facility] Last Admin: 07/19/21 09:05 Dose: 10 ml Sodium Chloride (Sodium Chloride 0.9% 10 Ml Flush Syringe) 10 ml IV PRN PRN PRN Reason: LINE FLUSH Tramadol HCl (Tramadol 50 Mg Tab) 50 mg PO Q4H PRN PRN Reason: Pain, Mild (1-3) Physical Examination Vital signs: Vital Signs Pulse 115 H 07/18/21 14:34 General appearance: no acute distress, alert Eyes: non-icteric Neck: supple, no JVD Effort: normal Ascultation: Bilateral: rhonchi Cardiovascular: other (Sinus tachycardia) Gastrointestinal: normoactive bowel sounds, soft, non-tender Integumentary: normal Extremities: no cyanosis, no edema Musculoskeletal: no deformities Gait: other (Patient resting in bed at this time.) normal mental status, non-focal exam, pupils equal and round mood appropriate, affect normal Results - Laboratory Findings CBC and BMP: 07/18/21 14:33 07/18/21 14:33 PT/INR, D-dimer PT 18.9 Sec. (12.2-14.9) H 07/18/21 14:33 INR 1.41 (0.87-1.13) H 07/18/21 14:33 Abnormal lab findings: Abnormal Labs 07/18/21 07/18/21 07/18/21 14:33 14:33 14:33 WBC 17.4 H RBC 3.48 L Hgb 9.6 L Hct 29.4 L RDW 13.1 L Plt Count 512 H Lymph % (Auto) 7.3 L [place] % (Auto) 9.2 H [place] # (Auto) 1.6 H Seg Neutrophils % 83.2 H Seg Neutrophils # 14.5 H PT 18.9 H INR 1.41 H Sodium 125 L Chloride 82.6 L Glucose 296 H POC Glucose Hemoglobin A1c 07/19/21 07/19/21 08:33 10:50 WBC RBC Hgb Hct RDW Plt Count Lymph % (Auto) [place] % (Auto) [place] # (Auto) Seg Neutrophils % Seg Neutrophils # PT INR Sodium Chloride Glucose POC Glucose 510 H Hemoglobin A1c 11.1 H - Diagnostic Findings Chest x-ray: report reviewed, image reviewed Additional studies: Chest single view 07/18/21 INDICATION: Dyspnea IMPRESSION: Cardiomegaly with trace bibasilar opacity probably representing atelectasis. No pneumothorax. Assessment and Plan 60 YO Male with DM, Cocaine Dependence presents ED for evaluation. Patient reports "my chest hurts". Patient states that he experienced chest pain over the past 2 weeks with an acute worsening of symptoms . Patient states that the pain is 6/10, constant, substernal, worsened with exertion, relieved with nitro. Patient is currently incarcerated. EMS was notified and upon arrival the patient was found to be in distress and subsequently transported to [facility] for further care and evaluation of the aforementioned symptoms. The patient was found to have evidence of ST elevation on his EKG conducted in the field. Patient transported to [facility] for further care and evaluation of the aforementioned symptoms. Patient found to have ST elevation VT as well as clinical symptoms consistent with diastolic CHF. Cardiology team notified. Patient taken urgently to cardiac Data Processing Equipment Repairer for cardiac catheterization. Patient denies fever, chills, productive cough, skin rash, recent contact, known exposure to COVID-19. Patient has history of diabetes. Patient has history of smoking for 20 years x 1 pack. Stopped smoking Cigaretts 11 years ago. History of alcohol and drug abuse. 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 Says allergic to insuline Isophane. Patient awake, sitting up by the side of the bed. Patient us on room air. O2 O2 saturation 92%. No complaint of chest pain, shortness of breath or cough. Patient afebrile. Has leukocytosis. Blood pressure 111/72, Pulse 106, respirations 18. Chest xray done 07/18/21 reported Cardiomegaly with trace bibasilar opacity probably representing atelectasis. No pneumothorax. Patient is on albuterol inhaler. I spent critical care time of 40 minutes obtaining history, review review the chart, examine the patient, review chest xray , review labs, talking to the nursing staff and work out plan of treatment in this patient admitted with chest pain, shortness of breath and EKG changes. - Patient Problems (1) Acute chest pain Current Visit: Yes Status: Acute Plan to address problem: Patient has cardiac cath. Management as per cardiology. (2) Cocaine dependence Current Visit: Yes Status: Acute Qualifiers: Complication of substance-induced condition: uncomplicated Plan to address problem: Counseled not to use illegal drugs. (3) STEMI (ST elevation myocardial infarction) Current Visit: Yes Status: Acute Plan to address problem: Management as per cardiology. (4) Diastolic CHF Current Visit: Yes Status: Acute Qualifiers: Heart failure chronicity: acute Qualified Code(s): I50.31 - Acute diastolic (congestive) heart failure Plan to address problem: Management as per cardiology. (5) Diabetes Current Visit: Yes Status: Acute Plan to address problem: Management as per primary care.
[2021-07-19] MEDS ORDERED: INSULIN GLARGINE 100 UNITS/ML SUB-Q SCH (22:00)
[2021-07-20 06:15] LABS: Hematocrit 31.7 % (35.5-45.6); Mean Corpuscular HGB Conc 32 % (32-34); Mean Corpuscular Volume 86 fl (84-94); Platelet Count 514 K/mm3 (140-440); Red Cell Distribution Width 13.5 % (13.2-15.2)
[2021-07-20 06:38] LABS: BUN/Creatinine Ratio 21; Blood Urea Nitrogen 21 mg/dL (9-20); Calcium 8.7 mg/dL (8.4-10.2); Hemolysis Index 4
[2021-07-20] MEDS: INSULIN LISPRO 100 UNIT/ML SUB-Q SCH ×4 (09:10→22:26)
[2021-07-20] MEDS: DOCUSATE SODIUM 100 MG CAP PO SCH (09:11)
[2021-07-20] MEDS: POLYETHYLENE GLYCOL 3350 17 GM POWDER PO SCH (09:11)
[2021-07-20] MEDS: METOPROLOL TARTRATE 25 MG TAB PO SCH ×2 (09:11→22:26)
[2021-07-20] MEDS: ASPIRIN 81 MG TAB CHEW PO SCH (09:11)
[2021-07-20] MEDS ORDERED: INSULIN GLARGINE 100 UNITS/ML SUB-Q SCH (10:00)
--- NOTE | 2021-07-20 10:20 | Progress Note ---
Assessment and Plan Patient is clinically stable from a cardiac perspective. Cardiac catheterization yesterday revealed nonobstructive disease. 2 troponins are negative. He is asymptomatic. Aggressive primary and secondary prevention measures also discussed. Low-grade fever overnight. Echocardiogram revealed a mild pericardial effusion and large pleural effusion. Normal systolic performance without valvulopathy. Given his EKG changes with diffuse ST elevation and pericardial effusion, clinically he may have had pericarditis of unclear etiology. We will discontinue aspirin and start indomethacin (continue for 2 weeks only). Repeat echocardiogram as an outpatient in 4 to 6 weeks. Stable cardiac status. Pulmonary work-up is underway. Continue low-dose beta-kody, and statin therapy. - Patient Problems (1) Cocaine dependence Current Visit: Yes Status: Acute Qualifiers: Complication of substance-induced condition: uncomplicated (2) Diastolic CHF Current Visit: Yes Status: Acute Qualifiers: Heart failure chronicity: acute Qualified Code(s): I50.31 - Acute diastolic (congestive) heart failure (3) Substance abuse Current Visit: Yes Status: Deleted Subjective Interval history: Patient is doing well. Seen at bedside. Guard also at bedside. No symptoms whatsoever. Objective Vital Signs Temp Pulse Resp BP BP Pulse Ox 07/20/21 07:34 98.3 F 107 H 18 130/82 93 07/20/21 03:55 98.6 F 59 L 18 98/65 98 07/19/21 22:52 98.9 F 106 H 18 90/61 95 07/19/21 22:46 98.4 F 07/19/21 22:35 111 H 07/19/21 21:47 99.3 F 07/19/21 20:21 94 07/19/21 19:54 101.9 F H 107 H 16 111/73 92 07/19/21 16:51 103 H 18 111/72 93 07/19/21 15:57 98.9 F 103 H 18 117/78 97 07/19/21 13:00 93 H 07/19/21 12:21 98.4 F 37 L 16 115/85 98 - Physical Examination HEENT: Positive: PERRL Neuro: Positive: Grossly Intact Abdomen: Positive: Soft, Active Bowel Sounds Skin: Negative: Rash, Suspicious Lesions, Ulceration Extremities: Present: upper extr. pulses. Absent: edema - Labs and Meds CBC 07/20/21 Range/Units 05:46 WBC 14.4 H (4.5-11.0) K/mm3 RBC 3.70 (3.65-5.03) M/mm3 Hgb 10.0 L (11.8-15.2) gm/dl Hct 31.7 L (35.5-45.6) % Plt Count 514 H (140-440) K/mm3 Comprehensive Metabolic Panel 07/20/21 Range/Units 05:46 Sodium 131 L (137-145) mmol/L Potassium 4.2 (3.6-5.0) mmol/L Chloride 87.8 L (98-107) mmol/L Carbon Dioxide 21 L (22-30) mmol/L BUN 21 H (9-20) mg/dL Creatinine 1.0 (0.8-1.3) mg/dL Glucose 411 H (75-100) mg/dL Calcium 8.7 (8.4-10.2) mg/dL - Imaging and Cardiology Echo: pending Cardiac cath: pending - EKG Sinus rhythms and dysrhythmias: sinus rhythm Myocardial infarction: inferior [place] (acute or rec, anterior [place] (acute or rec, lateral [place] (acute or rece
[2021-07-20] MEDS ORDERED: SODIUM CHLORIDE 0.9% 1000 ML 1,000 ML IV SCH (12:30)
--- NOTE | 2021-07-20 12:33 | Progress Note ---
Assessment and Plan Assessment and plan: #STEMI (ST elevation myocardial infarction) #Coronary Artery Disease -ST elevations noted on EKG -troponin negative x2 -Cardiac cath 07/18/21: nonobstructive CAD -Echocardiogram showing normal EF; recommended for repeat outpatient TTE in 4-6 weeks -continue aspirin, statin & BB -Cardiology following, assistance appreciated #Diastolic CHF Strict I's/O, monitor urine output every shift, daily weight, afterload reduction, blood pressure control. Cardiology team consulted. Further care and evaluation as per cardiology team. #Type 2 diabetes, [id number] -glucose of 500 per nursing -Given 10 units regular insulin -A1c ordered -will continue with moderate sliding scale -will adjust regimen according to future blood glucose values -carbohydrate consistent diet #SIRS #Fever #Leukocytosis #Thrombocytosis -patient with tmax of 101.9 -WBC count trending down -blood cultures collected -etiology unknown, likely reactive #Cocaine dependence -UDS negative -Supportive care, continue medical management #Advance care planning -Disease education conducted, care plan discussed, diagnoses discussed, prognosis discussed, patient is full code. Patient knowledges understanding and agreement with care plan, +30 minutes. History Interval history: No acute events overnight. Denies cough, subjective fever, chest pain, shortness of breath, abdominal pain, nausea/vomiting. He did have a headache overnight which resolved. Hospitalist Physical - Physical exam Narrative exam: GENERAL: Well-developed well-nourished. In no acute distress. HEENT: Normocephalic. Atraumatic. NECK: Supple. CHEST/LUNGS: CTAB on room air HEART/CARDIOVASCULAR: RRR. No murmur, rubs or gallops appreciated. ABDOMEN: +BS. NT/ND. SKIN: No rashes noted. NEURO: No focal motor deficit. Follows all commands. MUSCULOSKELETAL: No joint effusion EXTREMITIES: No cyanosis, clubbing or edema. PSYCH: Cooperative. - Constitutional Vitals: Temp Pulse Resp BP Pulse Ox 98.4 F 80 18 117/78 90 07/20/21 11:33 07/20/21 11:33 07/20/21 11:33 07/20/21 11:33 07/20/21 11:33 General appearance: Present: mild distress HEART Score - HEART Score EKG: Significant ST-depression Age: 45-65 Risk factors: > 3 risk factors or hx of atherosclerotic disease Troponin: Troponin T < 0.010 ng/mL (0.00-0.029) 07/18/21 20:52 Troponin: < normal limit - Critical Actions Critical Actions: 4-6 pts:12-16.6% risk of adverse cardiac event. Should be admitted Results - Labs CBC & Chem 7: 07/20/21 05:46 07/20/21 05:46 Labs: Laboratory Last Values WBC 14.4 K/mm3 (4.5-11.0) H 07/20/21 05:46 RBC 3.70 M/mm3 (3.65-5.03) 07/20/21 05:46 Hgb 10.0 gm/dl (11.8-15.2) L 07/20/21 05:46 Hct 31.7 % (35.5-45.6) L 07/20/21 05:46 MCV 86 fl (84-94) 07/20/21 05:46 MCH 27 pg (28-32) L 07/20/21 05:46 MCHC 32 % (32-34) 07/20/21 05:46 RDW 13.5 % (13.2-15.2) 07/20/21 05:46 Plt Count 514 K/mm3 (140-440) H 07/20/21 05:46 Lymph % (Auto) 7.3 % (13.4-35.0) L 07/18/21 14:33 [place] % (Auto) 9.2 % (0.0-7.3) H 07/18/21 14:33 Eos % (Auto) 0.0 % (0.0-4.3) 07/18/21 14:33 Baso % (Auto) 0.3 % (0.0-1.8) 07/18/21 14:33 Lymph # (Auto) 1.3 K/mm3 (1.2-5.4) 07/18/21 14:33 [place] # (Auto) 1.6 K/mm3 (0.0-0.8) H 07/18/21 14:33 Eos # (Auto) 0.0 K/mm3 (0.0-0.4) 07/18/21 14:33 Baso # (Auto) 0.1 K/mm3 (0.0-0.1) 07/18/21 14:33 Seg Neutrophils % 83.2 % (40.0-70.0) H 07/18/21 14:33 Seg Neutrophils # 14.5 K/mm3 (1.8-7.7) H 07/18/21 14:33 PT 18.9 Sec. (12.2-14.9) H 07/18/21 14:33 INR 1.41 (0.87-1.13) H 07/18/21 14:33 APTT 31.6 Sec. (24.2-36.6) 07/18/21 14:33 Sodium 131 mmol/L (137-145) L 07/20/21 05:46 Potassium 4.2 mmol/L (3.6-5.0) 07/20/21 05:46 Chloride 87.8 mmol/L (98-107) L 07/20/21 05:46 Carbon Dioxide 21 mmol/L (22-30) L 07/20/21 05:46 Anion Gap 26 mmol/L 07/20/21 05:46 BUN 21 mg/dL (9-20) H 07/20/21 05:46 Creatinine 1.0 mg/dL (0.8-1.3) 07/20/21 05:46 Estimated GFR > 60 ml/min 07/20/21 05:46 BUN/Creatinine Ratio 21 % 07/20/21 05:46 Glucose 411 mg/dL (75-100) H 07/20/21 05:46 POC Glucose 395 mg/dL (70-105) H 07/20/21 11:29 Hemoglobin A1c 11.1 % (4-6) H 07/19/21 10:50 Calcium 8.7 mg/dL (8.4-10.2) 07/20/21 05:46 Total Creatine Kinase 56 units/L (55-170) 07/18/21 20:52 CK-MB (CK-2) 1.1 ng/mL (0.0-4.0) 07/18/21 20:52 CK-MB (CK-2) Rel Index 1.9 (0-4) 07/18/21 20:52 Troponin T < 0.010 ng/mL (0.00-0.029) 07/18/21 20:52 Urine Opiates Screen Presumptive negative 07/18/21 20:05 Urine Methadone Screen Presumptive negative 07/18/21 20:05 Ur Barbiturates Screen Presumptive negative 07/18/21 20:05 Ur Phencyclidine Scrn Presumptive negative 07/18/21 20:05 Ur Amphetamines Screen Presumptive negative 07/18/21 20:05 U Benzodiazepines Scrn Presumptive positive 07/18/21 20:05 Urine Cocaine Screen Presumptive negative 07/18/21 20:05 U Marijuana (THC) Screen Presumptive negative 07/18/21 20:05 Drugs of Abuse Note Disclamer 07/18/21 20:05 Blood Type O POSITIVE 07/18/21 20:50 Antibody Screen Negative 07/18/21 20:50 Microbiology: Microbiology 07/20/21 07:39 Peripheral/Venous Blood Culture - Preliminary Culture in Progress 07/20/21 07:39 Peripheral/Venous Blood Culture - Preliminary Culture in Progress Siddiqui/IV: Voiding Method Urinal Active Medications - Current Medications Current Medications: Generic Name Dose Route Start Last Admin Trade Name Freq PRN Reason Stop Dose Admin Acetaminophen 650 mg 07/18/21 14:50 Acetaminophen 325 Mg Tab PO Q6H PRN Fever >100.5/ALMEIDA Hydrocodone Bitart/Acetaminophen 1 each 07/18/21 15:28 Hydrocodone/Acetaminophen 5-325 Mg Tab PO Q4H PRN Pain, Moderate (4-6) Albuterol 2.5 mg 07/18/21 14:50 Albuterol 2.5 Mg/3 Ml Nebu IH Q3HRT PRN Shortness Of Breath Atorvastatin Calcium 20 mg 07/19/21 22:00 07/19/21 22:41 Atorvastatin 20 Mg Tab PO 20 mg QHS AVERY Administration Dextrose 50 ml 07/19/21 09:00 Dextrose 50% In Water (25gm) 50 Ml Syringe IV Q30MIN PRN Hypoglycemia Protocol Docusate Sodium 100 mg 07/19/21 12:00 07/20/21 09:11 Docusate Sodium 100 Mg Cap PO 100 mg QDAY AVERY Administration Sodium Chloride 1,000 mls @ 75 mls/hr 07/20/21 12:30 Nacl 0.9% 1000 Ml IV DIRECT AVERY Indomethacin 25 mg 07/20/21 14:00 Indomethacin 25 Mg Cap PO Q8HR AVERY Insulin Glargine 15 units 07/20/21 12:27 Insulin Glargine 100 Units/Ml SUB-Q BID AVERY Insulin Human Lispro 0 unit 07/19/21 11:30 07/20/21 09:10 Insulin Lispro 100 Unit/Ml SUB-Q 10 unit ACHS AVERY Administration Protocol Metoprolol Tartrate 12.5 mg 07/19/21 10:00 07/20/21 09:11 Metoprolol Tartrate 25 Mg Tab PO 12.5 mg BID AVERY Administration Polyethylene Glycol 17 gm 07/19/21 12:00 07/20/21 09:11 Polyethylene Glycol 3350 17 Gm Powder PO 17 gm QDAY AVERY Administration Sodium Chloride 10 ml 07/18/21 22:00 07/20/21 09:11 Sodium Chloride 0.9% 10 Ml Flush Syringe IV 10 ml BID AVERY Administration Sodium Chloride 10 ml 07/18/21 14:50 Sodium Chloride 0.9% 10 Ml Flush Syringe IV PRN PRN LINE FLUSH Tramadol HCl 50 mg 07/18/21 15:28 Tramadol 50 Mg Tab PO Q4H PRN Pain, Mild (1-3) Nutrition/Malnutrition Assess - Dietary Evaluation Nutrition/Malnutrition Findings: Nutrition Notes Start: 07/19/21 11:43 Freq: Status: Active Protocol: Document 07/19/21 11:43 RAMON (Rec: 07/19/21 11:45 RAMON [id number]) Nutrition Notes Need for Assessment generated from: chief technician,MST Initial or Follow up Brief Note Current Diagnosis Diabetes,Heart Failure Other Pertinent Diagnosis STEMI, Cocaine dependence Current Diet Cardiac/Consistent CHO Weight Status Appropriate Subjective/Other Information Pt screened for malnutrition risk; he is currently incarcerated. Burn Absent Trauma Absent Nutrition Intervention Follow-Up By: 07/22/21 Additional Comments F/U: intakes
[2021-07-20] MEDS: INSULIN GLARGINE 100 UNITS/ML SUB-Q SCH ×3 (12:54→22:25)
[2021-07-20] MEDS: INDOMETHACIN 25 MG CAP PO SCH ×2 (14:54→22:25)
--- NOTE | 2021-07-20 15:09 | Progress Note ---
Assessment and Plan 60 YO Male with DM, Cocaine Dependence presents ED for evaluation. Patient reports "my chest hurts". Patient states that he experienced chest pain over the past 2 weeks with an acute worsening of symptoms . Patient states that the pain is 6/10, constant, substernal, worsened with exertion, relieved with nitro. Patient is currently incarcerated. EMS was notified and upon arrival the patient was found to be in distress and subsequently transported to [facility] for further care and evaluation of the aforementioned symptoms. The patient was found to have evidence of ST elevation on his EKG conducted in the field. Patient transported to [facility] for further care and evaluation of the aforementioned symptoms. Patient found to have ST elevation [place] as well as clinical symptoms consistent with diastolic CHF. Cardiology team notified. Patient taken urgently to cardiac City Director for cardiac catheterization. Patient denies fever, chills, productive cough, skin rash, recent contact, known exposure to COVID-19. Patient has history of diabetes. Patient has history of smoking for 20 years x 1 pack. Stopped smoking Cigaretts 11 years ago. History of alcohol and drug abuse. 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 Says allergic to insuline Isophane. Patient awake. Patient us on room air. O2 O2 saturation 90%. No complaint of chest pain, shortness of breath or cough. Patient afebrile. Has leukocytosis. Blood pressure 117/78, Pulse 80, respirations 18. Chest xray done 07/18/21 reported Cardiomegaly with trace bibasilar opacity probably representing atelectasis. No pneumothorax. Patient is on albuterol inhaler. - Patient Problems (1) Acute chest pain Current Visit: Yes Status: Acute Plan to address problem: Patient has cardiac cath. Management as per cardiology. (2) Cocaine dependence Current Visit: Yes Status: Acute Qualifiers: Complication of substance-induced condition: uncomplicated Plan to address problem: Counseled not to use illegal drugs. (3) STEMI (ST elevation myocardial infarction) Current Visit: Yes Status: Acute Plan to address problem: Management as per cardiology. (4) Diastolic CHF Current Visit: Yes Status: Acute Qualifiers: Heart failure chronicity: acute Qualified Code(s): I50.31 - Acute diastolic (congestive) heart failure Plan to address problem: Management as per cardiology. (5) Diabetes Current Visit: Yes Status: Acute Plan to address problem: Management as per primary care. Subjective Date of service: 07/20/21 Interval history: 60 YO Male with DM, Cocaine Dependence presents ED for evaluation. Patient reports "my chest hurts". Patient states that he experienced chest pain over the past 2 weeks with an acute worsening of symptoms . Patient states that the pain is 6/10, constant, substernal, worsened with exertion, relieved with nitro. Patient is currently incarcerated. EMS was notified and upon arrival the patient was found to be in distress and subsequently transported to [facility] for further care and evaluation of the aforementioned symptoms. The patient was found to have evidence of ST elevation on his EKG conducted in the field. Patient transported to [facility] for further care and evaluation of the aforementioned symptoms. Patient found to have ST elevation [place] as well as clinical symptoms consistent with diastolic CHF. Cardiology team notified. Patient taken urgently to cardiac City Director for cardiac catheterization. Patient denies fever, chills, productive cough, skin rash, recent contact, known exposure to COVID-19. Patient has history of diabetes. Patient has history of smoking for 20 years x 1 pack. Stopped smoking Cigaretts 11 years ago. History of alcohol and drug abuse. 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 Says allergic to insuline Isophane. Patient awake. Patient us on room air. O2 O2 saturation 90%. No complaint of chest pain, shortness of breath or cough. Patient afebrile. Has leukocytosis. Blood pressure 117/78, Pulse 80, respirations 18. Chest xray done 07/18/21 reported Cardiomegaly with trace bibasilar opacity probably representing atelectasis. No pneumothorax. Patient is on albuterol inhaler. Objective Vital Signs - 12hr 07/20/21 07/20/21 07/20/21 03:55 07:34 10:00 Temperature 98.6 F 98.3 F Pulse Rate 59 L 107 H Pulse Rate [ 105 H Radial] Respiratory 18 18 18 Rate Blood Pressure 98/65 130/82 Blood Pressure [Right] O2 Sat by Pulse 98 93 95 Oximetry 07/20/21 11:33 Temperature 98.4 F Pulse Rate 80 Pulse Rate [ Radial] Respiratory 18 Rate Blood Pressure Blood Pressure 117/78 [Right] O2 Sat by Pulse 90 Oximetry Constitutional: no acute distress, alert Eyes: non-icteric Neck: supple, no JVD Effort: normal Ascultation: Bilateral: diminished breath sounds, rhonchi Cardiovascular: other (Sinus tachycardia) Gastrointestinal: normoactive bowel sounds, soft, non-tender Integumentary: normal Extremities: no cyanosis, no edema Neurologic: normal mental status, non-focal exam, pupils equal and round Psychiatric: mood appropriate, affect normal CBC and BMP: 07/21/21 05:27 07/21/21 05:27 ABG, PT/INR, D-dimer: PT/INR, D-dimer PT 18.9 Sec. (12.2-14.9) H 07/18/21 14:33 INR 1.41 (0.87-1.13) H 07/18/21 14:33 Abnormal lab findings: Abnormal Labs 07/18/21 07/18/21 07/18/21 14:33 14:33 14:33 WBC 17.4 H RBC 3.48 L Hgb 9.6 L Hct 29.4 L MCH RDW 13.1 L Plt Count 512 H Lymph % (Auto) 7.3 L [place] % (Auto) 9.2 H [place] # (Auto) 1.6 H Seg Neutrophils % 83.2 H Seg Neutrophils # 14.5 H PT 18.9 H INR 1.41 H Sodium 125 L Chloride 82.6 L Carbon Dioxide BUN Glucose 296 H POC Glucose Hemoglobin A1c 07/19/21 07/19/21 07/19/21 08:33 10:50 12:15 WBC RBC Hgb Hct MCH RDW Plt Count Lymph % (Auto) [place] % (Auto) [place] # (Auto) Seg Neutrophils % Seg Neutrophils # PT INR Sodium Chloride Carbon Dioxide BUN Glucose POC Glucose 510 H 384 H Hemoglobin A1c 11.1 H 07/19/21 07/19/21 07/19/21 15:55 20:38 22:50 WBC RBC Hgb Hct MCH RDW Plt Count Lymph % (Auto) [place] % (Auto) [place] # (Auto) Seg Neutrophils % Seg Neutrophils # PT INR Sodium Chloride Carbon Dioxide BUN Glucose POC Glucose 331 H 309 H 333 H Hemoglobin A1c 07/20/21 07/20/21 07/20/21 05:46 05:46 07:32 WBC 14.4 H RBC Hgb 10.0 L Hct 31.7 L MCH 27 L RDW Plt Count 514 H Lymph % (Auto) [place] % (Auto) [place] # (Auto) Seg Neutrophils % Seg Neutrophils # PT INR Sodium 131 L Chloride 87.8 L Carbon Dioxide 21 L BUN 21 H Glucose 411 H POC Glucose 389 H Hemoglobin A1c 07/20/21 11:29 WBC RBC Hgb Hct MCH RDW Plt Count Lymph % (Auto) [place] % (Auto) [place] # (Auto) Seg Neutrophils % Seg Neutrophils # PT INR Sodium Chloride Carbon Dioxide BUN Glucose POC Glucose 395 H Hemoglobin A1c
[2021-07-20] MEDS ORDERED: FLEET ENEMA PR ONE (17:00)
[2021-07-21] MEDS: INDOMETHACIN 25 MG CAP PO SCH (05:28)
[2021-07-21 06:24] LABS: Hematocrit 28.3 % (35.5-45.6); Mean Corpuscular HGB Conc 32 % (32-34); Mean Corpuscular Volume 85 fl (84-94); Platelet Count 517 K/mm3 (140-440); Red Blood Count 3.34 M/mm3 (3.65-5.03); Red Cell Distribution Width 13.2 % (13.2-15.2)
[2021-07-21 06:39] LABS: BUN/Creatinine Ratio 20; Blood Urea Nitrogen 18 mg/dL (9-20); Calcium 8.6 mg/dL (8.4-10.2); Hemolysis Index 4
--- NOTE | 2021-07-21 07:39 | Discharge Summary ---
Providers - Providers Date of Admission: 07/18/21 14:50 Date of discharge: 07/21/21 Attending physician: HE DAMON MD 07/18/21 14:31 Consult to Physician [CONS] Stat Comment: Consulting Provider: LUIS CORLEY Physician Instructions: Reason For Exam: stemi 07/18/21 15:28 Consult to Cardiac Rehabilitation [CONS] Routine Reason For Exam: Cardiac Rehab Evaluation 07/18/21 16:33 Consult to Physician [CONS] Routine Comment: Consulting Provider: CADEN FITZGERALD Physician Instructions: Reason For Exam: STEMI Primary care physician: CRACKER OFF Hospitalization Condition: Critical Disposition: 30 STILL A PATIENT Exam - Physical Exam Narrative exam: GENERAL: Well-developed well-nourished. In no acute distress. HEENT: Normocephalic. Atraumatic. NECK: Supple. CHEST/LUNGS: CTAB on room air HEART/CARDIOVASCULAR: RRR. No murmur, rubs or gallops appreciated. ABDOMEN: +BS. NT/ND. SKIN: No rashes noted. NEURO: No focal motor deficit. Follows all commands. MUSCULOSKELETAL: No joint effusion EXTREMITIES: No cyanosis, clubbing or edema. PSYCH: Cooperative. - Constitutional Vitals: Temp Pulse Resp BP Pulse Ox 97.4 F L 80 16 124/79 94 07/21/21 03:58 07/21/21 04:43 07/21/21 03:58 07/21/21 04:43 07/21/21 03:58 Plan Care Plan Goals: Please follow-up with your primary care provider. You take a medication called indomethacin for the next 2 weeks. Please make sure to schedule follow-up appointment with the distribution collection operator in the next 4 to 6 weeks for a repeat echocardiogram. Information to schedule appointment will be provided to you. Follow up with: PRIMARY CAREMD [Primary Care Provider] - 7 Days Prescriptions: AtorvaSTATin [Lipitor] 20 mg PO QHS 30 Days #30 tablet Docusate Sodium [Colace CAP] 100 mg PO QDAY 30 Days #30 capsule Indomethacin [Indocin] 25 mg PO Q8HR 11 Days #33 capsule Syrge-Ndl,Ins 0.3 ml Half Ronaldo [Insulin Syringe] 1 each MC BID 30 Days #100 each Insulin Glargine [Lantus VIAL] 20 units SUB-Q BID 30 Days #1200 units Metoprolol [Lopressor TAB] 12.5 mg PO BID 30 Days #30 tablet polyethylene glycoL 3350 [Miralax 3350] 17 gm PO QDAY 30 Days #30 powd.pack Other Discharge Orders: Glucometer (Amb) Location: None Selected Glucometer supplies[Amb] Location: None Selected
[2021-07-21 07:40] VITALS: BP 126/77
[2021-07-21] MEDS: INSULIN LISPRO 100 UNIT/ML SUB-Q SCH (08:14)
[2021-07-21] MEDS: INSULIN GLARGINE 100 UNITS/ML SUB-Q SCH (09:32)
[2021-07-21] MEDS: DOCUSATE SODIUM 100 MG CAP PO SCH (09:32)
[2021-07-21] MEDS: POLYETHYLENE GLYCOL 3350 17 GM POWDER PO SCH (09:32)
[2021-07-21] MEDS: METOPROLOL TARTRATE 25 MG TAB PO SCH (09:33)
--- NOTE | 2021-07-21 12:08 | Progress Note ---
Assessment and Plan Acute chest pain Cocaine dependence STEMI (ST elevation myocardial infarction) Diastolic CHF Diabetes type 2 - complete ACS w/up per cardiology - continue secondary prevention - continue BP control, statins and anti-platelet therapy - supplemental oxygen to keep O2 sats > 90% - prn bronchodilators (MAX) with pulm hygiene per RT - avoid nephrotoxins, renally dose all medications - mobility protocols to prevent pressure ulcers - PT/OT as tolerated - Wound care per RN/WCT - continue accuchecks with glycemic control per SSI for target blood glucose < 180 mg/dL - tobacco abstinence strongly counseled at the bedside - home oxygen evaluation at discharge - GI & VTE prophylaxis - Flu & pneumovax per protocol - Pulmonary out patient follow up for PFTs and optimization of respiratory status - continue other care per attending / other consultants - prn analgesia per pain score ... re-evaluate in am & prn Subjective Date of service: 07/21/21 Principal diagnosis: Acute chest pain; Cocaine dependence; STEMI; HFpEF; DM II Interval history: Patient is seen today for: Acute chest pain; Cocaine dependence; STEMI; HFpEF; DM II Seen and examined at bedside; 24hour events reviewed; nursing and respiratory care staff consulted; no adverse overnight events reported to me; resting peacefully in bed; Objective Vital Signs - 12hr 07/21/21 07/21/21 07/21/21 02:41 03:58 04:43 Temperature 97.4 F L Pulse Rate 80 79 80 Respiratory 16 Rate Blood Pressure 88/50 Blood Pressure 124/79 [Right] O2 Sat by Pulse 94 Oximetry 07/21/21 07/21/21 07:38 09:33 Temperature Pulse Rate 85 85 Respiratory Rate Blood Pressure 126/77 Blood Pressure [Right] O2 Sat by Pulse 93 Oximetry Constitutional: no acute distress, alert Eyes: non-icteric Neck: supple, no JVD Effort: normal Ascultation: Bilateral: diminished breath sounds, rhonchi Cardiovascular: other (Sinus tachycardia) Gastrointestinal: normoactive bowel sounds, soft, non-tender Integumentary: normal Extremities: no cyanosis, no edema Neurologic: normal mental status, non-focal exam, pupils equal and round Psychiatric: mood appropriate, affect normal CBC and BMP: 07/21/21 05:27 07/21/21 05:27 ABG, PT/INR, D-dimer: PT/INR, D-dimer PT 18.9 Sec. (12.2-14.9) H 07/18/21 14:33 INR 1.41 (0.87-1.13) H 07/18/21 14:33 Abnormal lab findings: Abnormal Labs 07/18/21 07/18/21 07/18/21 14:33 14:33 14:33 WBC 17.4 H RBC 3.48 L Hgb 9.6 L Hct 29.4 L MCH RDW 13.1 L Plt Count 512 H Lymph % (Auto) 7.3 L [place] % (Auto) 9.2 H [place] # (Auto) 1.6 H Seg Neutrophils % 83.2 H Seg Neutrophils # 14.5 H PT 18.9 H INR 1.41 H Sodium 125 L Chloride 82.6 L Carbon Dioxide BUN Glucose 296 H POC Glucose Hemoglobin A1c 07/19/21 07/19/21 07/19/21 08:33 10:50 12:15 WBC RBC Hgb Hct MCH RDW Plt Count Lymph % (Auto) [place] % (Auto) [place] # (Auto) Seg Neutrophils % Seg Neutrophils # PT INR Sodium Chloride Carbon Dioxide BUN Glucose POC Glucose 510 H 384 H Hemoglobin A1c 11.1 H 07/19/21 07/19/21 07/19/21 15:55 20:38 22:50 WBC RBC Hgb Hct MCH RDW Plt Count Lymph % (Auto) [place] % (Auto) [place] # (Auto) Seg Neutrophils % Seg Neutrophils # PT INR Sodium Chloride Carbon Dioxide BUN Glucose POC Glucose 331 H 309 H 333 H Hemoglobin A1c 07/20/21 07/20/21 07/20/21 05:46 05:46 07:32 WBC 14.4 H RBC Hgb 10.0 L Hct 31.7 L MCH 27 L RDW Plt Count 514 H Lymph % (Auto) [place] % (Auto) [place] # (Auto) Seg Neutrophils % Seg Neutrophils # PT INR Sodium 131 L Chloride 87.8 L Carbon Dioxide 21 L BUN 21 H Glucose 411 H POC Glucose 389 H Hemoglobin A1c 07/20/21 07/20/21 07/20/21 11:29 16:19 20:20 WBC RBC Hgb Hct MCH RDW Plt Count Lymph % (Auto) [place] % (Auto) [place] # (Auto) Seg Neutrophils % Seg Neutrophils # PT INR Sodium Chloride Carbon Dioxide BUN Glucose POC Glucose 395 H 341 H 347 H Hemoglobin A1c 07/21/21 07/21/21 07/21/21 05:27 05:27 07:39 WBC RBC 3.34 L Hgb 9.0 L Hct 28.3 L MCH 27 L RDW Plt Count 517 H Lymph % (Auto) [place] % (Auto) [place] # (Auto) Seg Neutrophils % Seg Neutrophils # PT INR Sodium 131 L Chloride 90.4 L Carbon Dioxide BUN Glucose 440 H POC Glucose 391 H Hemoglobin A1c
--- NOTE | 2021-07-21 13:13 | Electrocardiograph Report ---
[facility] Test Date: 2021-07-18 Test Time: 14:34:59 Pat Name: ANURAG HILTON Department: Room: A454 1 Gender: M Housekeeping Staff: VIDAL : 1960 Requested By: ALBARO BRANDON Order Number: [id number] Reading MD: Sergio Frederick Measurements Intervals [place] Rate: 115 P: 23 [place]: 184 QRS: 19 QRSD: 87 T: 4 QT: 332 QTc: 459 Interpretive Statements Sinus tachycardia Anterolateral infarct, acute lateral STEMI No previous ECG available for comparison Electronically Signed On 07-21-2021 13:13:15 EDT by Sergio Frederick
--- NOTE | 2021-07-21 13:29 | Electrocardiograph Report ---
[facility] Test Date: 2021-07-19 Test Time: 12:25:53 Pat Name: ANURAG HILTON Department: Room: A454 1 Gender: M Senior Director: COLTON : 1960 Requested By: ALBARO NICHOLS Order Number: [id number] Reading MD: Sergio Frederick Measurements Intervals [place] Rate: 101 P: 42 [place]: 201 QRS: 5 QRSD: 89 T: 95 QT: 344 QTc: 447 Interpretive Statements Sinus tachycardia Acute inferolateral STEMI Compared to ECG 07/18/2021 14:34:59 Acute lateral STEMI in evolution Electronically Signed On 07-21-2021 13:29:20 EDT by Sergio Frederick
== END 2021-07-21 12:15 | DRG 280 ==
LOC: ED 14:29 → 4A 14:50
PROVIDERS: ADMIT Internal Medicine; ATTEND Student in an Organized Health Care Education/Training Program
PROC: 4A023N7 Measurement of Cardiac Sampling and Pressure, Left Heart, Percutaneous Approach (ICD-10-PCS; principal; 2021-07-18)
PROC: B2111ZZ Fluoroscopy of Multiple Coronary Arteries using Low Osmolar Contrast (ICD-10-PCS; 2021-07-18)
PROC: B2151ZZ Fluoroscopy of Left Heart using Low Osmolar Contrast (ICD-10-PCS; 2021-07-18)
DX: I21.3 ST elevation (STEMI) myocardial infarction of unspecified site (principal); I50.31 Acute diastolic (congestive) heart failure; F14.20 Cocaine dependence, uncomplicated; R65.10 Systemic inflammatory response syndrome (SIRS) of non-infectious origin without acute organ dysfunction; E11.9 Type 2 diabetes mellitus without complications; Z88.8 Allergy status to other drugs, medicaments and biological substances; Z83.3 Family history of diabetes mellitus; Z82.49 Family history of ischemic heart disease and other diseases of the circulatory system; I25.10 Atherosclerotic heart disease of native coronary artery without angina pectoris; D72.829 Elevated white blood cell count, unspecified; D75.839 Thrombocytosis, unspecified
CPT/HCPCS: 36415; 71045; 80048; 80307; 82550; 82553; 82962; 83036; 84484; 85025; 85027; 85610; 85730; 86850; 86900; 86901; 87040; 93005; 93306; 93458; 94640; 99291; G0378; J1815; J3490; Q9967; C1769; C1887; C1894; C8929; J1644; J2250; J3010; J7030